=== PATIENT | male | born 1950 | race Caucasian/White ===

== ENCOUNTER 2021-03-31 17:41 | Inpatient (IN) ==
[2021-03-31 19:24] LABS: Basophils # 0.1 K/mcL (0.0-0.2); Basophils % 0.7 %; Eosinophils # 0.4 K/mcL (0.0-0.6); Eosinophils % 3.7 %; Hematocrit 43.5 % (37.5-50.1); Hemoglobin 13.9 g/dL (12.9-16.9); Immature Granulocytes % 0.5 % (0-4); Lymphocytes # 1.7 K/mcL (0.6-4.6); Lymphocytes % 14.7 %; Mean Corpuscular Volume 97.1 fL (83.0-100.0); Mean Platelet Volume 9.3 fL (9.4-12.4); Monocytes # 1.2 K/mcL (0.0-1.3); Monocytes % 10.8 %; Neutrophils # 7.8 K/mcL (1.6-8.9); Platelet Count 380 K/mcL (140-400); Red Blood Count 4.48 M/mcL (4.19-5.50); Red Cell Distribution Width 12.4 % (11.5-14.5); Segmented Neutrophils % 69.6 %; White Blood Count 11.3 K/mcL (4.3-11.1)
[2021-03-31 19:40] LABS: Calcium 9.8 mg/dL (8.6-10.3); Potassium 4.2 mEq/L (3.5-5.1)
[2021-03-31 19:48] LABS: Troponin I 0.04 ng/mL (< 0.04)
[2021-03-31] MEDS ORDERED: Ondansetron 4 MG/2 ML VIAL IVP PRN (20:02)
[2021-03-31] MEDS ORDERED: Acetaminophen 325 MG TABLET PO PRN (20:02)
[2021-03-31] MEDS ORDERED: Naloxone 0.4 MG/ML INJ IVP PRN (20:02)
[2021-03-31] MEDS ORDERED: Perflutren Lipid Microsphere 1.3 ML in 0.9 % Sodium Chloride 8.7 ML IVP PRN (20:05)
[2021-03-31] MEDS ORDERED: Ipratropium/Albuterol Neb 3 ML IH PRN (20:06)
[2021-03-31 20:33] LABS: Adenovirus Not Detected (Not Detect); Bordetella Pertussis Not Detected (Not Detect); Chlamydophila pneumoniae Not Detected (Not Detect); Coronavirus 229E Not Detected (Not Detect); Coronavirus HKU1 Not Detected (Not Detect); Coronavirus NL63 Not Detected (Not Detect); Coronavirus OC43 Not Detected (Not Detect); Human Metapneumovirus Not Detected (Not Detect); Human Rhinovirus/Enterovirus Not Detected (Not Detect); Influenza A Subtype 2009 H1 Not Detected (Not Detect); Influenza B Not Detected (Not Detect); Mycoplasma pneumoniae Not Detected (Not Detect); Parainfluenza Virus 1 Not Detected (Not Detect); Parainfluenza Virus 2 Not Detected (Not Detect); Parainfluenza Virus 3 Not Detected (Not Detect); Parainfluenza Virus 4 Not Detected (Not Detect); Respiratory Syncytial Virus Not Detected (Not Detect); SARS-CoV-2 Not Detected (Not Detect)
[2021-03-31] MEDS ORDERED: Furosemide 20 MG/2 ML VIAL IVP ONE (22:48)
[2021-03-31 23:02] LABS: Bilirubin,Urine Negative (Negative); Blood,Urine Negative (Negative); Clarity,Urine Clear (Clear); Color,Urine Colorless (Yellow); Glucose,Urine (UA) Normal (Normal); Ketones,Urine Negative (Negative); Leukocyte Esterase,Urine Negative (Negative); Nitrite,Urine Negative (Negative); Protein,Urine Negative (Neg-Trace); Specific Gravity,Urine 1.009 (1.010-1.025); Urobilinogen,Urine Normal (Normal)
[2021-04-01] MEDS ORDERED: Melatonin 3 MG TABLET PO PRN (01:37)
[2021-04-01] MEDS ORDERED: Gabapentin 300 MG CAPSULE PO PRN (01:37)
[2021-04-01] MEDS ORDERED: calcitrioL 0.25 MCG CAPSULE PO SCH (01:45)
[2021-04-01 07:15] LABS: Basophils # 0.1 K/mcL (0.0-0.2); Basophils % 0.8 %; Eosinophils # 0.4 K/mcL (0.0-0.6); Eosinophils % 4.2 %; Hematocrit 41.7 % (37.5-50.1); Hemoglobin 13.2 g/dL (12.9-16.9); Immature Granulocytes % 0.6 % (0-4); Lymphocytes # 1.5 K/mcL (0.6-4.6); Lymphocytes % 17.1 %; Mean Corpuscular HGB Conc 31.7 g/dL (31.6-35.5); Mean Corpuscular Hemoglobin 30.3 pg (28.0-33.3); Mean Corpuscular Volume 95.9 fL (83.0-100.0); Mean Platelet Volume 9.6 fL (9.4-12.4); Monocytes # 1.2 K/mcL (0.0-1.3); Monocytes % 13.7 %; Neutrophils # 5.7 K/mcL (1.6-8.9); Platelet Count 367 K/mcL (140-400); Red Blood Count 4.35 M/mcL (4.19-5.50); Red Cell Distribution Width 12.5 % (11.5-14.5); Segmented Neutrophils % 63.6 %
[2021-04-01 07:25] LABS: Albumin 3.8 g/dL (3.5-5.7); Albumin/Globulin Ratio 1.2 (1.1-2.2); Bilirubin,Direct 0.2 mg/dL (0.0-0.2); Bilirubin,Indirect 0.4 mg/dL (0.0-1.0); Bilirubin,Total 0.6 mg/dL (0.3-1.0); Globulin 3.1 g/dL (2.4-3.5); Total Protein 6.9 g/dL (6.4-8.9)
[2021-04-01 07:26] LABS: Calcium 9.5 mg/dL (8.6-10.3); Chol/HDL Ratio 4.5 (0-4.9); Magnesium 1.8 mg/dL (1.6-2.6); Potassium 4.2 mEq/L (3.5-5.1)
[2021-04-01 07:36] LABS: INR 1.2; Prothrombin Time 13.5 Seconds (9.4-12.1)
[2021-04-01 07:52] LABS: Thyroid Stimulating Hormone 2.215 mcIU/mL (0.340-5.600)
[2021-04-01] MEDS ORDERED: metOLazone 5 MG TABLET PO SCH (08:30)
[2021-04-01] MEDS: Apixaban 5 MG TABLET PO SCH ×2 (10:53→21:04)
[2021-04-01] MEDS: Furosemide 20 MG TABLET PO SCH ×2 (10:53→21:04)
[2021-04-01] MEDS: Nicotine 7 MG PATCH.TD24 TD SCH (10:54)
[2021-04-01] MEDS: WIXELA IH SCH ×2 (10:54→19:50)
[2021-04-01] MEDS: cefTRIAXone 1,000 MG in 0.9 % Sodium Chloride Mini Bag 100 ML IVPB SCH (11:32)
[2021-04-01] MEDS: calcitrioL 0.25 MCG CAPSULE PO SCH (12:17)
[2021-04-01] MEDS: Azithromycin 500 MG in 0.9 % Sodium Chloride 250 ML IVPB SCH (12:17)
[2021-04-02 05:33] LABS: Hematocrit 39.2 % (37.5-50.1); Hemoglobin 12.6 g/dL (12.9-16.9); Mean Corpuscular HGB Conc 32.1 g/dL (31.6-35.5); Mean Corpuscular Hemoglobin 30.7 pg (28.0-33.3); Mean Corpuscular Volume 95.6 fL (83.0-100.0); Mean Platelet Volume 9.7 fL (9.4-12.4); Platelet Count 332 K/mcL (140-400); Red Cell Distribution Width 12.5 % (11.5-14.5); White Blood Count 8.7 K/mcL (4.3-11.1)
[2021-04-02 05:54] LABS: Calcium 9.1 mg/dL (8.6-10.3); Potassium 4.3 mEq/L (3.5-5.1)
[2021-04-02] MEDS: allopurinoL 100 MG TABLET PO SCH (09:25)
[2021-04-02] MEDS: Furosemide 20 MG TABLET PO SCH ×2 (09:25→20:45)
[2021-04-02] MEDS: Apixaban 5 MG TABLET PO SCH ×2 (09:25→20:44)
[2021-04-02] MEDS: cefTRIAXone 1,000 MG in 0.9 % Sodium Chloride Mini Bag 100 ML IVPB SCH (09:26)
[2021-04-02] MEDS: Nicotine 7 MG PATCH.TD24 TD SCH (09:26)
[2021-04-02] MEDS: Cyanocobalamin (B-12) 1,000 MCG TABLET PO SCH (09:26)
[2021-04-02] MEDS: Azithromycin 500 MG in 0.9 % Sodium Chloride 250 ML IVPB SCH (09:26)
[2021-04-02] MEDS: WIXELA IH SCH ×2 (10:07→20:03)
[2021-04-02] MEDS: Sennosides/Docusate Sodium TABLET PO PRN (20:44)
[2021-04-03 01:36] LABS: Hematocrit 39.5 % (37.5-50.1); Hemoglobin 12.5 g/dL (12.9-16.9); Mean Corpuscular HGB Conc 31.6 g/dL (31.6-35.5); Mean Corpuscular Volume 94.7 fL (83.0-100.0); Mean Platelet Volume 9.6 fL (9.4-12.4); Platelet Count 354 K/mcL (140-400); Red Blood Count 4.17 M/mcL (4.19-5.50); Red Cell Distribution Width 12.4 % (11.5-14.5); White Blood Count 9.2 K/mcL (4.3-11.1)
[2021-04-03 01:47] LABS: Calcium 9.2 mg/dL (8.6-10.3); Potassium 4.1 mEq/L (3.5-5.1)
[2021-04-03] MEDS: WIXELA IH SCH (07:40)
[2021-04-03] MEDS: Azithromycin 500 MG in 0.9 % Sodium Chloride 250 ML IVPB SCH (08:42)
[2021-04-03] MEDS: Furosemide 20 MG TABLET PO SCH (08:43)
[2021-04-03] MEDS: Apixaban 5 MG TABLET PO SCH ×2 (08:43→20:53)
[2021-04-03] MEDS: allopurinoL 100 MG TABLET PO SCH (08:43)
[2021-04-03] MEDS: Cyanocobalamin (B-12) 1,000 MCG TABLET PO SCH (08:43)
[2021-04-03] MEDS: calcitrioL 0.25 MCG CAPSULE PO SCH (08:43)
[2021-04-03] MEDS: cefTRIAXone 1,000 MG in 0.9 % Sodium Chloride Mini Bag 100 ML IVPB SCH (08:44)
[2021-04-03] MEDS: Nicotine 7 MG PATCH.TD24 TD SCH (08:44)
[2021-04-03] MEDS: Budesonide/Formoterol 80/4.5 1 PUFF INH IH SCH ×2 (11:47→20:10)
[2021-04-03] MEDS: Bumetanide 1 MG TABLET PO SCH (16:45)
[2021-04-03] MEDS: Sennosides/Docusate Sodium TABLET PO PRN (20:59)
[2021-04-04] MEDS: Budesonide/Formoterol 80/4.5 1 PUFF INH IH SCH ×2 (08:12→22:23)
[2021-04-04] MEDS ORDERED: metOLazone 2.5 MG TABLET PO SCH (09:00)
[2021-04-04] MEDS ORDERED: Spironolactone 12.5 MG TABLET PO SCH (09:00)
[2021-04-04] MEDS: cefTRIAXone 1,000 MG in 0.9 % Sodium Chloride Mini Bag 100 ML IVPB SCH (09:11)
[2021-04-04] MEDS: Azithromycin 500 MG in 0.9 % Sodium Chloride 250 ML IVPB SCH (09:15)
[2021-04-04] MEDS: Apixaban 5 MG TABLET PO SCH ×2 (09:18→20:43)
[2021-04-04] MEDS: Cyanocobalamin (B-12) 1,000 MCG TABLET PO SCH (09:19)
[2021-04-04] MEDS: allopurinoL 100 MG TABLET PO SCH (09:19)
[2021-04-04] MEDS: Nicotine 7 MG PATCH.TD24 TD SCH (09:19)
[2021-04-04] MEDS: MethylPREDNISolone 40 MG/ML VIAL IVP SCH (16:15)
[2021-04-04] MEDS: Bumetanide 1 MG TABLET PO SCH (16:16)
[2021-04-04] MEDS: Sennosides/Docusate Sodium TABLET PO PRN (20:44)
[2021-04-05 01:59] VITALS: PULSE 61
[2021-04-05] MEDS ORDERED: levoFLOXacin 750 MG TABLET PO SCH (08:00)
[2021-04-05] MEDS: Budesonide/Formoterol 80/4.5 1 PUFF INH IH SCH (08:11)
[2021-04-05] MEDS: Nicotine 7 MG PATCH.TD24 TD SCH (08:51)
[2021-04-05] MEDS: MethylPREDNISolone 40 MG/ML VIAL IVP SCH (08:52)
[2021-04-05] MEDS: calcitrioL 0.25 MCG CAPSULE PO SCH (08:52)
[2021-04-05] MEDS: Apixaban 5 MG TABLET PO SCH (08:52)
[2021-04-05] MEDS: allopurinoL 100 MG TABLET PO SCH (08:53)
[2021-04-05] MEDS: Cyanocobalamin (B-12) 1,000 MCG TABLET PO SCH (08:53)
[2021-04-05] MEDS ORDERED: Azithromycin 250 MG TABLET PO SCH (09:00)
[2021-04-05 11:00] VITALS: BP 109/54; TEMP 97.6
[2021-04-05 13:41] VITALS: O2SAT 93
[2021-04-05] MEDS: Bumetanide 1 MG TABLET PO SCH (15:33)
== END 2021-04-05 16:02 | disposition home or self-care (01) | DRG 193 ==
LOC: EMEROOARM 17:41 → 3BNU 17:41 → SUATTDRO 04-01 13:07
PROVIDERS: ADMIT Student in an Organized Health Care Education/Training Program; ATTEND Internal Medicine

== ENCOUNTER 2021-07-03 18:49 | Inpatient (IN) ==
[2021-07-03] MEDS ORDERED: Aspirin 325 MG TABLET PO ONE (20:24)
[2021-07-03 20:52] LABS: INR 1.3; Prothrombin Time 14.3 Seconds (9.4-12.1)
[2021-07-03 20:54] LABS: Activated Partial Thrombo Time 40.5 Seconds (26.0-36.0)
[2021-07-03 20:59] LABS: Albumin 4.5 g/dL (3.5-5.7); Albumin/Globulin Ratio 1.5 (1.1-2.2); Bilirubin,Direct 0.2 mg/dL (0.0-0.2); Bilirubin,Indirect 0.4 mg/dL (0.0-1.0); Bilirubin,Total 0.6 mg/dL (0.3-1.0); Total Protein 7.5 g/dL (6.4-8.9); Troponin I 0.05 ng/mL (< 0.04)
[2021-07-03] MEDS ORDERED: *HR* Promethazine 25 MG/ML VIAL IM PRN (21:36)
[2021-07-03] MEDS ORDERED: Acetaminophen 325 MG TABLET PO PRN (21:36)
[2021-07-03] MEDS ORDERED: *HR* HYDROcodone/Acet 5/325 mg TABLET PO PRN (21:36)
[2021-07-03] MEDS ORDERED: Naloxone 0.4 MG/ML INJ IVP PRN (21:36)
[2021-07-03] MEDS ORDERED: Furosemide 20 MG/2 ML VIAL IVP ONE (21:44)
[2021-07-03 22:09] LABS: Influenza A PCR Negative (Negative); Influenza B PCR Negative (Negative); Resp. Syncytial Virus PCR Negative (Negative)
[2021-07-03 22:10] LABS: SARS-CoV-2 by PCR (In House) Negative (Negative)
[2021-07-03] MEDS: Budesonide/Formoterol 160/4.5 1 PUFF INH IH SCH (23:37)
[2021-07-03] MEDS: Ipratropium/Albuterol Neb 3 ML IH SCH (23:37)
[2021-07-04] MEDS: MethylPREDNISolone 40 MG/ML VIAL IVP SCH ×4 (00:17→21:49)
[2021-07-04] MEDS ORDERED: *HR* Heparin 5,000 UNIT/ML VIAL IVP PRN (01:00)
[2021-07-04] MEDS ORDERED: Heparin 25,000UNIT/250ML 1/2NS 25,000 UNIT/250 ML IV.SOLN IVC SCH (01:00)
[2021-07-04] MEDS ORDERED: *HR* Dextrose 50 % in Water (Syg) 50 ML SYRINGE IVP PRN (01:33)
[2021-07-04] MEDS ORDERED: Perflutren Lipid Microsphere 1.3 ML in 0.9 % Sodium Chloride 8.7 ML IVP PRN ×2 (01:33→04:22)
[2021-07-04] MEDS ORDERED: Dextrose 4 GM Chewable Tablets PO PRN ×2 (01:33)
[2021-07-04] MEDS ORDERED: D5% in Water 1,000 ML IVC PRN (01:33)
[2021-07-04 03:08] LABS: Basophils % 0.3 %; Hematocrit 41.6 % (37.5-50.1); Hemoglobin 13.6 g/dL (12.9-16.9); Immature Granulocytes % 0.4 % (0-4); Lymphocytes # 0.4 K/mcL (0.6-4.6); Lymphocytes % 5.8 %; Mean Corpuscular HGB Conc 32.7 g/dL (31.6-35.5); Mean Corpuscular Volume 88.7 fL (83.0-100.0); Mean Platelet Volume 9.6 fL (9.4-12.4); Monocytes # 0.1 K/mcL (0.0-1.3); Monocytes % 1.3 %; Neutrophils # 6.4 K/mcL (1.6-8.9); Platelet Count 344 K/mcL (140-400); Red Blood Count 4.69 M/mcL (4.19-5.50); Red Cell Distribution Width 14.3 % (11.5-14.5); Segmented Neutrophils % 92.2 %
[2021-07-04 03:30] LABS: Albumin/Globulin Ratio 1.2 (1.1-2.2); Bilirubin,Total 0.5 mg/dL (0.3-1.0); Calcium 9.7 mg/dL (8.6-10.3); Chol/HDL Ratio 3.4 (0-4.9); Globulin 3.3 g/dL (2.4-3.5); Phosphorous 3.2 mg/dL (2.7-4.5); Potassium 3.5 mEq/L (3.5-5.1); Total Protein 7.3 g/dL (6.4-8.9)
[2021-07-04 03:37] LABS: INR 1.2; Prothrombin Time 13.5 Seconds (9.4-12.1)
[2021-07-04 03:41] LABS: Thyroid Stimulating Hormone 0.788 mcIU/mL (0.340-5.600)
[2021-07-04 04:12] LABS: Estimated Average Glucose 117 mg/dl; Hemoglobin A1C 5.7 %
[2021-07-04] MEDS: Ipratropium/Albuterol Neb 3 ML IH SCH ×5 (04:29→20:12)
[2021-07-04] MEDS: Heparin 25,000UNIT/250ML 1/2NS 25,000 UNIT/250 ML IV.SOLN IVC SCH ×2 (04:37→18:03)
[2021-07-04 06:09] LABS: Bilirubin,Urine Negative (Negative); Blood,Urine Negative (Negative); Clarity,Urine Clear (Clear); Color,Urine Light-Yellow (Yellow); Glucose,Urine (UA) Normal (Normal); Ketones,Urine Negative (Negative); Leukocyte Esterase,Urine Negative (Negative); Nitrite,Urine Negative (Negative); PH,Urine 5.5 pH Units (5.0-8.0); Protein,Urine Negative (Neg-Trace); Specific Gravity,Urine 1.015 (1.010-1.025); Urobilinogen,Urine Normal (Normal)
[2021-07-04] MEDS: Budesonide/Formoterol 160/4.5 1 PUFF INH IH SCH ×2 (07:22→20:12)
[2021-07-04] MEDS: Artificial Tears SOLN 15 ML BOTTLE BOTH EYES SCH ×2 (08:54→21:50)
[2021-07-04] MEDS: Saline Nasal Spray 44 ML BOTTLE NS SCH ×4 (08:54→21:49)
[2021-07-04] MEDS: cefTRIAXone 1,000 MG in 0.9 % Sodium Chloride Mini Bag 100 ML IVPB SCH (08:55)
[2021-07-04] MEDS: Aspirin 81 MG TAB.CHEW PO SCH (08:56)
[2021-07-04] MEDS: Multivit/Ca/Min/Fe/FA 1 TAB TABLET PO SCH (08:56)
[2021-07-04] MEDS: Chlorhexidine Rinse 15 ML MOUTHWASH MM SCH ×2 (08:56→21:50)
[2021-07-04] MEDS: Azithromycin 250 MG TABLET PO SCH (08:57)
[2021-07-04] MEDS: Lactobacillus 1 EACH CAP.SPRINK PO SCH ×2 (08:57→21:49)
[2021-07-04] MEDS: *HR* Heparin 5,000 UNIT/ML VIAL IVP PRN (18:02)
[2021-07-04] MEDS: calcitrioL 0.25 MCG CAPSULE PO SCH (21:49)
[2021-07-05] MEDS: Ipratropium/Albuterol Neb 3 ML IH SCH ×7 (00:05→23:52)
[2021-07-05 01:55] LABS: Basophils % 0.1 %; Hemoglobin 12.3 g/dL (12.9-16.9); Immature Granulocytes % 0.4 % (0-4); Lymphocytes # 0.5 K/mcL (0.6-4.6); Lymphocytes % 3.5 %; Mean Corpuscular HGB Conc 32.4 g/dL (31.6-35.5); Mean Corpuscular Hemoglobin 28.2 pg (28.0-33.3); Mean Corpuscular Volume 87.2 fL (83.0-100.0); Mean Platelet Volume 9.6 fL (9.4-12.4); Monocytes # 0.5 K/mcL (0.0-1.3); Monocytes % 3.8 %; Platelet Count 334 K/mcL (140-400); Red Blood Count 4.36 M/mcL (4.19-5.50); Red Cell Distribution Width 14.2 % (11.5-14.5); Segmented Neutrophils % 92.2 %
[2021-07-05 02:05] LABS: Neutrophils # 12.7 K/mcL (1.6-8.9); White Blood Count 13.8 K/mcL (4.3-11.1)
[2021-07-05 02:15] LABS: Calcium 9.3 mg/dL (8.6-10.3); Magnesium 2.1 mg/dL (1.6-2.6); Potassium 3.4 mEq/L (3.5-5.1)
[2021-07-05] MEDS: MethylPREDNISolone 40 MG/ML VIAL IVP SCH ×3 (06:03→21:00)
[2021-07-05] MEDS: Budesonide/Formoterol 160/4.5 1 PUFF INH IH SCH ×2 (07:28→20:02)
[2021-07-05] MEDS: Lactobacillus 1 EACH CAP.SPRINK PO SCH ×2 (08:15→19:56)
[2021-07-05] MEDS: Multivit/Ca/Min/Fe/FA 1 TAB TABLET PO SCH (08:15)
[2021-07-05] MEDS: Aspirin 81 MG TAB.CHEW PO SCH (08:15)
[2021-07-05] MEDS: Azithromycin 250 MG TABLET PO SCH (08:16)
[2021-07-05] MEDS: cefTRIAXone 1,000 MG in 0.9 % Sodium Chloride Mini Bag 100 ML IVPB SCH (08:16)
[2021-07-05] MEDS: Cyanocobalamin (B-12) 1,000 MCG TABLET PO SCH (08:16)
[2021-07-05] MEDS: Saline Nasal Spray 44 ML BOTTLE NS SCH ×5 (08:17→19:49)
[2021-07-05] MEDS: Artificial Tears SOLN 15 ML BOTTLE BOTH EYES SCH ×2 (08:17→19:49)
[2021-07-05] MEDS: Chlorhexidine Rinse 15 ML MOUTHWASH MM SCH ×2 (08:17→19:56)
[2021-07-05] MEDS: Heparin 25,000UNIT/250ML 1/2NS 25,000 UNIT/250 ML IV.SOLN IVC SCH (08:21)
[2021-07-05] MEDS ORDERED: Furosemide 20 MG/2 ML VIAL IVP ONE ×2 (13:27→20:29)
[2021-07-05] MEDS ORDERED: 0.9 % Sodium Chloride 1,000 ML IVC SCH (15:15)
[2021-07-05] MEDS ORDERED: Ipratropium/Albuterol Neb 3 ML IH ONE (20:26)
[2021-07-06] MEDS: Ipratropium/Albuterol Neb 3 ML IH SCH ×5 (03:39→20:14)
[2021-07-06] MEDS ORDERED: hydrOXYzine pamoate 25 MG CAPSULE PO ONE (04:54)
[2021-07-06] MEDS: MethylPREDNISolone 40 MG/ML VIAL IVP SCH ×3 (05:03→21:44)
[2021-07-06] MEDS: Budesonide/Formoterol 160/4.5 1 PUFF INH IH SCH ×2 (07:23→20:14)
[2021-07-06 08:47] LABS: Basophils % 0.1 %; Hemoglobin 12.4 g/dL (12.9-16.9); Immature Granulocytes % 0.6 % (0-4); Lymphocytes # 0.3 K/mcL (0.6-4.6); Mean Corpuscular HGB Conc 31.8 g/dL (31.6-35.5); Mean Corpuscular Hemoglobin 28.1 pg (28.0-33.3); Mean Corpuscular Volume 88.4 fL (83.0-100.0); Mean Platelet Volume 9.5 fL (9.4-12.4); Monocytes % 6.1 %; Neutrophils # 14.5 K/mcL (1.6-8.9); Platelet Count 325 K/mcL (140-400); Red Blood Count 4.41 M/mcL (4.19-5.50); Red Cell Distribution Width 14.7 % (11.5-14.5); Segmented Neutrophils % 91.2 %; White Blood Count 15.9 K/mcL (4.3-11.1)
[2021-07-06] MEDS: Multivit/Ca/Min/Fe/FA 1 TAB TABLET PO SCH (08:59)
[2021-07-06] MEDS: Cyanocobalamin (B-12) 1,000 MCG TABLET PO SCH (08:59)
[2021-07-06] MEDS: Lactobacillus 1 EACH CAP.SPRINK PO SCH ×2 (08:59→20:00)
[2021-07-06] MEDS: Aspirin 81 MG TAB.CHEW PO SCH (08:59)
[2021-07-06] MEDS: Azithromycin 250 MG TABLET PO SCH (09:00)
[2021-07-06] MEDS: cefTRIAXone 1,000 MG in 0.9 % Sodium Chloride Mini Bag 100 ML IVPB SCH (09:00)
[2021-07-06] MEDS: Chlorhexidine Rinse 15 ML MOUTHWASH MM SCH ×3 (09:03→20:17)
[2021-07-06] MEDS: Artificial Tears SOLN 15 ML BOTTLE BOTH EYES SCH ×2 (09:07→20:10)
[2021-07-06] MEDS: Saline Nasal Spray 44 ML BOTTLE NS SCH ×3 (09:07→20:10)
[2021-07-06 09:13] LABS: Calcium 9.7 mg/dL (8.6-10.3); Potassium 3.8 mEq/L (3.5-5.1)
[2021-07-06 10:07] LABS: Mycoplasma pneumoniae IgG 0.81 U/L (<=0.09)
[2021-07-06] MEDS: Furosemide 40 MG/4 ML VIAL IVP ONE ×4 (11:38→23:16)
[2021-07-06] MEDS: Albumin 25% 25gram/100mL 25 GM/100 ML IV.SOLN IVPB SCH ×2 (11:39→20:07)
[2021-07-06 13:16] LABS: Adenovirus Not Detected (Not Detect); Bordetella Pertussis Not Detected (Not Detect); Chlamydophila pneumoniae Not Detected (Not Detect); Coronavirus 229E Not Detected (Not Detect); Coronavirus HKU1 Not Detected (Not Detect); Coronavirus NL63 Not Detected (Not Detect); Coronavirus OC43 Not Detected (Not Detect); Human Metapneumovirus Not Detected (Not Detect); Human Rhinovirus/Enterovirus Not Detected (Not Detect); Influenza A Subtype 2009 H1 Not Detected (Not Detect); Influenza B Not Detected (Not Detect); Mycoplasma pneumoniae Not Detected (Not Detect); Parainfluenza Virus 1 Not Detected (Not Detect); Parainfluenza Virus 2 Not Detected (Not Detect); Parainfluenza Virus 3 Not Detected (Not Detect); Parainfluenza Virus 4 Not Detected (Not Detect); Respiratory Syncytial Virus Not Detected (Not Detect); SARS-CoV-2 Not Detected (Not Detect)
[2021-07-06] MEDS ORDERED: *HR* Metoprolol 5 MG/5 ML VIAL IVP ONE ×3 (14:37→15:23)
[2021-07-06] MEDS ORDERED: *HR* LORazepam 2 MG/ML VIAL IVP ONE ×2 (16:20→19:50)
[2021-07-06] MEDS: calcitrioL 0.25 MCG CAPSULE PO SCH ×2 (16:31→20:01)
[2021-07-06] MEDS: Furosemide 40 MG/4 ML VIAL IVP SCH (16:35)
[2021-07-06] MEDS: *HR* Heparin 5,000 UNIT/ML VIAL IVP PRN (17:13)
[2021-07-06] MEDS: Gabapentin 300 MG CAPSULE PO SCH (20:01)
[2021-07-06] MEDS ORDERED: Dexmedetomidine HCl 400 MCG/100 ML MLS IVC ONE (21:00)
[2021-07-06] MEDS: Dexmedetomidine HCl 400 MCG/100 ML MLS IVC SCH (21:03)
[2021-07-06] MEDS: Morphine Sulfate 2 MG/ML SYRINGE IVP ONE ×2 (21:39→21:41)
[2021-07-06] MEDS ORDERED: Furosemide 40 MG/4 ML VIAL ONE (22:39)
[2021-07-06 23:26] LABS: ABG Base Excess 3 mEq/L (-2 to 3); ABG HCO3 28 mEq/L (21-27); ABG Oxygen Saturation 96 % (95-98); ABG PCO2 46 mmHg (35-45); ABG PO2 84 mmHg (85-104); ABG TCO2 30 mEq/L (20-26)
[2021-07-07] MEDS: Ipratropium/Albuterol Neb 3 ML IH SCH ×6 (00:14→20:34)
[2021-07-07] MEDS: Heparin 25,000UNIT/250ML 1/2NS 25,000 UNIT/250 ML IV.SOLN IVC SCH ×2 (00:20→23:15)
[2021-07-07 00:51] LABS: Basophils % 0.1 %; Hematocrit 33.9 % (37.5-50.1); Immature Granulocytes % 0.7 % (0-4); Lymphocytes # 0.4 K/mcL (0.6-4.6); Lymphocytes % 2.4 %; Mean Corpuscular HGB Conc 31.3 g/dL (31.6-35.5); Mean Corpuscular Volume 89.4 fL (83.0-100.0); Mean Platelet Volume 9.9 fL (9.4-12.4); Monocytes # 1.2 K/mcL (0.0-1.3); Monocytes % 7.7 %; Neutrophils # 13.5 K/mcL (1.6-8.9); Platelet Count 296 K/mcL (140-400); Red Blood Count 3.79 M/mcL (4.19-5.50); Red Cell Distribution Width 14.9 % (11.5-14.5); Segmented Neutrophils % 89.1 %; White Blood Count 15.2 K/mcL (4.3-11.1)
[2021-07-07 00:52] LABS: Hemoglobin 10.6 g/dL (12.9-16.9)
[2021-07-07 01:09] LABS: Calcium 9.3 mg/dL (8.6-10.3); Potassium 4.4 mEq/L (3.5-5.1)
[2021-07-07] MEDS: Albumin 25% 25gram/100mL 25 GM/100 ML IV.SOLN IVPB SCH ×3 (03:02→21:15)
[2021-07-07] MEDS: Dexmedetomidine HCl 400 MCG/100 ML MLS IVC SCH ×2 (03:06→10:21)
[2021-07-07] MEDS: MethylPREDNISolone 40 MG/ML VIAL IVP SCH ×3 (06:16→21:34)
[2021-07-07] MEDS: Chlorhexidine Rinse 15 ML MOUTHWASH MM SCH ×2 (08:18→21:16)
[2021-07-07] MEDS: Budesonide/Formoterol 160/4.5 1 PUFF INH IH SCH ×2 (08:25→20:34)
[2021-07-07] MEDS: cefTRIAXone 1,000 MG in 0.9 % Sodium Chloride Mini Bag 100 ML IVPB SCH (10:22)
[2021-07-07] MEDS: Saline Nasal Spray 44 ML BOTTLE NS SCH ×4 (10:22→21:15)
[2021-07-07] MEDS: Gabapentin 300 MG CAPSULE PO SCH ×3 (10:23→21:16)
[2021-07-07] MEDS: Lactobacillus 1 EACH CAP.SPRINK PO SCH ×2 (10:23→21:16)
[2021-07-07] MEDS: Azithromycin 250 MG TABLET PO SCH (10:23)
[2021-07-07] MEDS: Aspirin 81 MG TAB.CHEW PO SCH (10:23)
[2021-07-07] MEDS: Cyanocobalamin (B-12) 1,000 MCG TABLET PO SCH (10:23)
[2021-07-07] MEDS: Artificial Tears SOLN 15 ML BOTTLE BOTH EYES SCH ×2 (10:23→21:15)
[2021-07-07] MEDS: Multivit/Ca/Min/Fe/FA 1 TAB TABLET PO SCH (10:23)
[2021-07-07] MEDS: Furosemide 40 MG/4 ML VIAL IVP SCH (10:24)
[2021-07-08] MEDS: Ipratropium/Albuterol Neb 3 ML IH SCH ×7 (00:04→23:13)
[2021-07-08 02:27] LABS: Basophils % 0.1 %; Hematocrit 32.2 % (37.5-50.1); Hemoglobin 10.1 g/dL (12.9-16.9); Immature Granulocytes % 1.2 % (0-4); Lymphocytes # 0.4 K/mcL (0.6-4.6); Lymphocytes % 4.4 %; Mean Corpuscular HGB Conc 31.4 g/dL (31.6-35.5); Mean Corpuscular Hemoglobin 28.4 pg (28.0-33.3); Mean Corpuscular Volume 90.4 fL (83.0-100.0); Monocytes # 0.6 K/mcL (0.0-1.3); Monocytes % 7.4 %; Neutrophils # 7.4 K/mcL (1.6-8.9); Platelet Count 263 K/mcL (140-400); Red Blood Count 3.56 M/mcL (4.19-5.50); Red Cell Distribution Width 14.6 % (11.5-14.5); Segmented Neutrophils % 86.9 %; White Blood Count 8.5 K/mcL (4.3-11.1)
[2021-07-08 02:41] LABS: Calcium 10.2 mg/dL (8.6-10.3); Potassium 3.9 mEq/L (3.5-5.1)
[2021-07-08] MEDS: Dexmedetomidine HCl 400 MCG/100 ML MLS IVC SCH (03:12)
[2021-07-08] MEDS: Albumin 25% 25gram/100mL 25 GM/100 ML IV.SOLN IVPB SCH (06:37)
[2021-07-08] MEDS: MethylPREDNISolone 40 MG/ML VIAL IVP SCH ×3 (06:38→21:55)
[2021-07-08] MEDS: Budesonide/Formoterol 160/4.5 1 PUFF INH IH SCH ×2 (07:31→20:27)
[2021-07-08] MEDS: Artificial Tears SOLN 15 ML BOTTLE BOTH EYES SCH ×2 (10:23→20:24)
[2021-07-08] MEDS: cefTRIAXone 1,000 MG in 0.9 % Sodium Chloride Mini Bag 100 ML IVPB SCH (10:24)
[2021-07-08] MEDS: Chlorhexidine Rinse 15 ML MOUTHWASH MM SCH ×2 (10:24→20:23)
[2021-07-08] MEDS: Saline Nasal Spray 44 ML BOTTLE NS SCH ×4 (10:24→20:23)
[2021-07-08] MEDS: Furosemide 40 MG/4 ML VIAL IVP SCH ×3 (10:24→15:57)
[2021-07-08] MEDS: Lactobacillus 1 EACH CAP.SPRINK PO SCH ×2 (10:25→20:23)
[2021-07-08] MEDS: Cyanocobalamin (B-12) 1,000 MCG TABLET PO SCH (10:25)
[2021-07-08] MEDS: Aspirin 81 MG TAB.CHEW PO SCH (10:25)
[2021-07-08] MEDS: Multivit/Ca/Min/Fe/FA 1 TAB TABLET PO SCH (10:25)
[2021-07-08] MEDS: Gabapentin 300 MG CAPSULE PO SCH ×3 (10:25→20:23)
[2021-07-08] MEDS: Azithromycin 250 MG TABLET PO SCH (10:26)
[2021-07-09 02:58] LABS: Basophils % 0.2 %; Hematocrit 34.6 % (37.5-50.1); Immature Granulocytes % 1.4 % (0-4); Lymphocytes # 0.4 K/mcL (0.6-4.6); Lymphocytes % 2.3 %; Mean Corpuscular HGB Conc 31.8 g/dL (31.6-35.5); Mean Corpuscular Hemoglobin 28.3 pg (28.0-33.3); Mean Corpuscular Volume 88.9 fL (83.0-100.0); Mean Platelet Volume 10.3 fL (9.4-12.4); Monocytes % 6.4 %; Neutrophils # 13.5 K/mcL (1.6-8.9); Platelet Count 317 K/mcL (140-400); Red Blood Count 3.89 M/mcL (4.19-5.50); Segmented Neutrophils % 89.7 %
[2021-07-09 03:20] LABS: Albumin 5.3 g/dL (3.5-5.7); Bilirubin,Total 1.1 mg/dL (0.3-1.0); Calcium 10.8 mg/dL (8.6-10.3); Globulin 2.7 g/dL (2.4-3.5)
[2021-07-09] MEDS: Ipratropium/Albuterol Neb 3 ML IH SCH ×5 (03:57→19:52)
[2021-07-09] MEDS: Budesonide/Formoterol 160/4.5 1 PUFF INH IH SCH ×2 (08:02→19:52)
[2021-07-09] MEDS: Saline Nasal Spray 44 ML BOTTLE NS SCH ×4 (08:59→21:33)
[2021-07-09] MEDS: Furosemide 40 MG/4 ML VIAL IVP SCH ×2 (08:59→17:36)
[2021-07-09] MEDS: Artificial Tears SOLN 15 ML BOTTLE BOTH EYES SCH ×2 (09:07→21:32)
[2021-07-09] MEDS: Multivit/Ca/Min/Fe/FA 1 TAB TABLET PO SCH (09:07)
[2021-07-09] MEDS: Lactobacillus 1 EACH CAP.SPRINK PO SCH ×2 (09:07→21:31)
[2021-07-09] MEDS: Gabapentin 300 MG CAPSULE PO SCH ×3 (09:07→21:31)
[2021-07-09] MEDS: Cyanocobalamin (B-12) 1,000 MCG TABLET PO SCH (09:07)
[2021-07-09] MEDS: Aspirin 81 MG TAB.CHEW PO SCH (09:07)
[2021-07-09] MEDS: MethylPREDNISolone 40 MG/ML VIAL IVP SCH ×2 (09:08→21:32)
[2021-07-09] MEDS: Chlorhexidine Rinse 15 ML MOUTHWASH MM SCH ×2 (09:08→21:32)
[2021-07-09] MEDS: Albumin 25% 25gram/100mL 25 GM/100 ML IV.SOLN IVPB SCH (10:44)
[2021-07-09] MEDS: Dexmedetomidine HCl 400 MCG/100 ML MLS IVC SCH (10:45)
[2021-07-10] MEDS: Ipratropium/Albuterol Neb 3 ML IH SCH ×7 (00:05→23:32)
[2021-07-10] MEDS: Dexmedetomidine HCl 400 MCG/100 ML MLS IVC SCH ×2 (01:35→17:31)
[2021-07-10] MEDS: Budesonide/Formoterol 160/4.5 1 PUFF INH IH SCH ×2 (07:35→19:56)
[2021-07-10] MEDS: Cyanocobalamin (B-12) 1,000 MCG TABLET PO SCH (07:37)
[2021-07-10] MEDS: Gabapentin 300 MG CAPSULE PO SCH ×3 (07:38→20:34)
[2021-07-10] MEDS: Multivit/Ca/Min/Fe/FA 1 TAB TABLET PO SCH (07:38)
[2021-07-10] MEDS: Lactobacillus 1 EACH CAP.SPRINK PO SCH ×2 (07:38→20:34)
[2021-07-10] MEDS: Aspirin 81 MG TAB.CHEW PO SCH (07:38)
[2021-07-10] MEDS: Artificial Tears SOLN 15 ML BOTTLE BOTH EYES SCH ×2 (07:39→20:34)
[2021-07-10] MEDS: Chlorhexidine Rinse 15 ML MOUTHWASH MM SCH ×2 (07:39→20:34)
[2021-07-10] MEDS: Saline Nasal Spray 44 ML BOTTLE NS SCH ×4 (07:39→20:35)
[2021-07-10] MEDS ORDERED: Furosemide 40 MG/4 ML VIAL IVP SCH (09:00)
[2021-07-10] MEDS: Fluticasone Propionate Nasal 50 MCG/SPRAY BOTTLE NS PRN (09:03)
[2021-07-10 09:16] LABS: Basophils # 0.1 K/mcL (0.0-0.2); Basophils % 0.2 %; Hematocrit 37.2 % (37.5-50.1); Hemoglobin 11.8 g/dL (12.9-16.9); Immature Granulocytes % 1.6 % (0-4); Lymphocytes # 0.6 K/mcL (0.6-4.6); Lymphocytes % 2.7 %; Mean Corpuscular HGB Conc 31.7 g/dL (31.6-35.5); Mean Corpuscular Hemoglobin 28.2 pg (28.0-33.3); Mean Platelet Volume 9.8 fL (9.4-12.4); Monocytes # 1.4 K/mcL (0.0-1.3); Monocytes % 6.2 %; Neutrophils # 20.8 K/mcL (1.6-8.9); Platelet Count 312 K/mcL (140-400); Red Blood Count 4.18 M/mcL (4.19-5.50); Segmented Neutrophils % 89.3 %
[2021-07-10 09:36] LABS: Calcium 10.2 mg/dL (8.6-10.3); Potassium 4.5 mEq/L (3.5-5.1)
[2021-07-10 09:49] LABS: White Blood Count 23.3 K/mcL (4.3-11.1)
[2021-07-10] MEDS: MethylPREDNISolone 40 MG/ML VIAL IVP SCH ×2 (09:58→22:09)
[2021-07-10] MEDS: calcitrioL 0.25 MCG CAPSULE PO SCH (17:30)
[2021-07-10] MEDS: Saliva Stimulant 44.3ml BOTTLE PO PRN ×2 (17:31→20:38)
[2021-07-11] MEDS: Ipratropium/Albuterol Neb 3 ML IH SCH ×6 (04:08→23:24)
[2021-07-11 05:46] LABS: Basophils # 0.1 K/mcL (0.0-0.2); Basophils % 0.4 %; Hematocrit 38.4 % (37.5-50.1); Hemoglobin 11.8 g/dL (12.9-16.9); Immature Granulocytes % 2.4 % (0-4); Lymphocytes # 0.6 K/mcL (0.6-4.6); Lymphocytes % 2.5 %; Mean Corpuscular HGB Conc 30.7 g/dL (31.6-35.5); Mean Corpuscular Hemoglobin 27.6 pg (28.0-33.3); Mean Corpuscular Volume 89.9 fL (83.0-100.0); Mean Platelet Volume 10.8 fL (9.4-12.4); Neutrophils # 22.4 K/mcL (1.6-8.9); Nucleated Red Blood Cells 0.1 /100 WBC (0); Platelet Count 310 K/mcL (140-400); Red Blood Count 4.27 M/mcL (4.19-5.50); Red Cell Distribution Width 15.3 % (11.5-14.5); Segmented Neutrophils % 90.7 %; White Blood Count 24.7 K/mcL (4.3-11.1)
[2021-07-11 06:03] LABS: Calcium 10.3 mg/dL (8.6-10.3); Potassium 5.4 mEq/L (3.5-5.1)
[2021-07-11] MEDS: Budesonide/Formoterol 160/4.5 1 PUFF INH IH SCH ×2 (07:27→19:56)
[2021-07-11] MEDS: Multivit/Ca/Min/Fe/FA 1 TAB TABLET PO SCH (08:38)
[2021-07-11] MEDS: Gabapentin 300 MG CAPSULE PO SCH ×3 (08:38→20:21)
[2021-07-11] MEDS: Lactobacillus 1 EACH CAP.SPRINK PO SCH ×2 (08:38→20:20)
[2021-07-11] MEDS: Cyanocobalamin (B-12) 1,000 MCG TABLET PO SCH (08:39)
[2021-07-11] MEDS: Saline Nasal Spray 44 ML BOTTLE NS SCH ×4 (08:39→20:20)
[2021-07-11] MEDS: Aspirin 81 MG TAB.CHEW PO SCH (08:39)
[2021-07-11] MEDS: Fluticasone Propionate Nasal 50 MCG/SPRAY BOTTLE NS PRN (08:39)
[2021-07-11] MEDS: Artificial Tears SOLN 15 ML BOTTLE BOTH EYES SCH ×2 (08:39→20:20)
[2021-07-11] MEDS: Chlorhexidine Rinse 15 ML MOUTHWASH MM SCH ×2 (08:39→20:20)
[2021-07-11] MEDS: MethylPREDNISolone 40 MG/ML VIAL IVP SCH ×2 (10:42→22:07)
[2021-07-11] MEDS: Dexmedetomidine HCl 400 MCG/100 ML MLS IVC SCH (15:06)
[2021-07-11] MEDS: Albumin 25% 25gram/100mL 25 GM/100 ML IV.SOLN IVPB SCH ×2 (15:22→20:30)
[2021-07-12 03:58] VITALS: TEMP 97.5
[2021-07-12] MEDS: Ipratropium/Albuterol Neb 3 ML IH SCH ×4 (03:59→16:16)
[2021-07-12] MEDS: Albumin 25% 25gram/100mL 25 GM/100 ML IV.SOLN IVPB SCH (04:39)
[2021-07-12] MEDS: Budesonide/Formoterol 160/4.5 1 PUFF INH IH SCH (07:18)
[2021-07-12] MEDS ORDERED: allopurinoL 100 MG TABLET PO SCH (09:00)
[2021-07-12 09:20] LABS: Basophils # 0.1 K/mcL (0.0-0.2); Basophils % 0.4 %; Hematocrit 41.1 % (37.5-50.1); Hemoglobin 12.7 g/dL (12.9-16.9); Immature Granulocytes % 3.5 % (0-4); Lymphocytes # 0.6 K/mcL (0.6-4.6); Lymphocytes % 2.6 %; Mean Corpuscular HGB Conc 30.9 g/dL (31.6-35.5); Mean Corpuscular Hemoglobin 28.1 pg (28.0-33.3); Mean Corpuscular Volume 90.9 fL (83.0-100.0); Mean Platelet Volume 10.8 fL (9.4-12.4); Monocytes # 1.7 K/mcL (0.0-1.3); Monocytes % 6.8 %; Neutrophils # 21.3 K/mcL (1.6-8.9); Nucleated Red Blood Cells 0.1 /100 WBC (0); Platelet Count 278 K/mcL (140-400); Red Blood Count 4.52 M/mcL (4.19-5.50); Red Cell Distribution Width 15.1 % (11.5-14.5); Segmented Neutrophils % 86.7 %; White Blood Count 24.6 K/mcL (4.3-11.1)
[2021-07-12] MEDS: Cyanocobalamin (B-12) 1,000 MCG TABLET PO SCH (09:25)
[2021-07-12] MEDS: Multivit/Ca/Min/Fe/FA 1 TAB TABLET PO SCH (09:25)
[2021-07-12] MEDS: Gabapentin 300 MG CAPSULE PO SCH ×2 (09:25→15:55)
[2021-07-12] MEDS: Artificial Tears SOLN 15 ML BOTTLE BOTH EYES SCH (09:26)
[2021-07-12] MEDS: Lactobacillus 1 EACH CAP.SPRINK PO SCH (09:26)
[2021-07-12] MEDS: Chlorhexidine Rinse 15 ML MOUTHWASH MM SCH (09:26)
[2021-07-12] MEDS: Aspirin 81 MG TAB.CHEW PO SCH (09:26)
[2021-07-12] MEDS: Saline Nasal Spray 44 ML BOTTLE NS SCH ×3 (09:26→15:56)
[2021-07-12 09:45] LABS: Platelet Estimate Normal (Normal)
[2021-07-12] MEDS ORDERED: polyethylene glycoL 3350 17 GM POWD.PACK PO SCH (10:00)
[2021-07-12] MEDS ORDERED: Sennosides/Docusate Sodium TABLET PO SCH (10:00)
[2021-07-12 10:51] LABS: Albumin 4.7 g/dL (3.5-5.7); Albumin/Globulin Ratio 1.9 (1.1-2.2); Bilirubin,Total 1.5 mg/dL (0.3-1.0); Calcium 10.2 mg/dL (8.6-10.3); Globulin 2.5 g/dL (2.4-3.5); Magnesium 3.1 mg/dL (1.6-2.6); Total Protein 7.2 g/dL (6.4-8.9)
[2021-07-12] MEDS: MethylPREDNISolone 40 MG/ML VIAL IVP SCH (12:43)
[2021-07-12] MEDS: Saliva Stimulant 44.3ml BOTTLE PO PRN (15:56)
[2021-07-12 16:09] VITALS: PULSE 79
[2021-07-12 16:10] VITALS: BP 138/69
[2021-07-12] MEDS ORDERED: *HR* EPINEPHrine 1 MG/10 ML SYRINGE IVP ONE (16:54)
[2021-07-12 17:41] VITALS: O2SAT 72
== END 2021-07-12 16:55 | disposition expired ==
LOC: 3NENU 18:49 → EMEROOARM 18:49 → SUATTDRO 21:36 → 3NENU 22:48 → 2NNU 07-06 23:54
PROVIDERS: ADMIT Internal Medicine; ATTEND Internal Medicine